=== PATIENT | male | born 1980 | race Caucasian/White ===

== ENCOUNTER 2017-02-08 14:51 | Emergency (ER) | payer MEDICAID, OTHER ==
--- NOTE | 2017-02-08 15:13 | NUR ---
CALLED PT FOR TRIAGE ASSESSMENT, NO ANSWER.
--- NOTE | 2017-02-08 15:31 | NUR ---
CALLED PT FOR TRIAGE ASSESSMENT, NO ANSWER X2.
--- NOTE | 2017-02-08 16:12 | NUR ---
PATIENT LEFT WITHOUT BEING SEEN BY DR. MORALES. NO FURTHER CARE PROVIDED FOR PATIENT.
== END 2017-02-08 16:12 | disposition left against medical advice (07) ==
LOC: MED 14:51
DX: M54.9 Dorsalgia, unspecified (principal); Z53.21 Procedure and treatment not carried out due to patient leaving prior to being seen by health care provider

== ENCOUNTER 2020-02-04 14:00 | Emergency (ER) | payer OTHER ==
[~2020-02-04] VITALS: Ht 185.4 cm; Wt 90.7 kg
[2020-02-04 14:01] VITALS: BP 133/93
--- NOTE | 2020-02-04 14:14 | NUR ---
39 Y/O MALE FROM HOME C/O RT FOOT PAIN RADIATING TO RT HIP X 2 WKS. PT STATES HE WAS SEEN AT [facility] 2 WKS AGO FOR SAME PAIN AND DIAGNOSED WITH NEUROPATHY. STATES 9/10 BURNING PAIN AT THIS TIME. HAS BEEN TAKING IBUPROFEN 800MG WITH NO RELIEF OF PAIN. ABLE TO AMBULATE, DENIES TRAUMA/INJURY. +CMS. NO DEFORMITIES NOTED, +PULSES BILATERALLY. MEDHX: DENIES ALLERGIES: NKA
--- NOTE | 2020-02-04 14:19 | NUR ---
DR ALCOCER AT BEDSIDE EXAMINING PT
[2020-02-04] MEDS ORDERED: KETOROLAC 30 MG/ML VIAL IM ONE (14:25)
--- NOTE | 2020-02-04 14:32 | NUR ---
LAB AT BEDSIDE
[2020-02-04 14:43] LABS: BASOPHILS # (AUTO) 0.1 K/uL (0.00-0.22); EOSINOPHILS % (AUTO) 0.7 % (0.0-4.0); HEMATOCRIT 44.8 % (36-52); HEMOGLOBIN 15.2 g/dL (12.0-18.0); LYMPHOCYTES # (AUTO) 1.7 K/uL (2.0-11.5); LYMPHOCYTES % (AUTO) 24.9 % (20.5-51.1); MEAN CORPUSCULAR HEMOGLOBIN 32 pg (27-31); MEAN CORPUSCULAR HGB CONC 34 g/dL (33-37); MEAN CORPUSCULAR VOLUME 93.9 fL (80-94); MONOCYTES # (AUTO) 0.4 K/uL (0.8-1.0); MONOCYTES % (AUTO) 6.4 % (1.7-9.3); NEUTROPHILS # (AUTO) 4.6 K/uL (1.8-7.7); PLATELET COUNT (AUTO) 211 K/uL (140-450); RED BLOOD CELL COUNT(AUTO) 4.77 MIL/uL (4.20-6.10); RED CELL DISTRIBUTION WIDTH 13.3 % (11.6-13.7); WHITE BLOOD COUNT (AUTO) 6.8 K/uL (4.8-10.8)
[2020-02-04 14:58] LABS: ANION GAP 11.7 (8-16); CARBON DIOXIDE 29.3 mmol/L (21-32); CREATININE 0.8 mg/dL (0.6-1.3)
--- NOTE | 2020-02-04 15:01 | NUR ---
RESTING IN BED AWAKE AND ALERT. X 1 SIDE RAIL RAISED, BED LOCKED AND IN LOW POSITION. STATES DECREASE IN PAIN/DISCOMFORT
--- NOTE | 2020-02-04 15:06 | NUR ---
DR ALCOCER RE-EVALUATING PT
[2020-02-04 15:13] VITALS: BP 127/88
--- NOTE | 2020-02-04 15:13 | NUR ---
Patient discharged with v/s stable. Written and verbal after care instructions given and explained. Patient alert, oriented and verbalized understanding of instructions. Ambulatory with steady gait. All questions addressed prior to discharge. ID band removed. Patient advised to follow up with PMD. Rx of NORCO 5MG-325MG TABLET given. Patient educated on indication of medication including possible reaction and side effects. Opportunity to ask questions provided and answered.
== END 2020-02-04 15:13 | disposition home or self-care (01) ==
LOC: MED 14:00
DX: M79.671 Pain in right foot (principal)
CPT/HCPCS: 36415; 80048; 85025; 96372; 99283; J1885

== ENCOUNTER 2022-04-08 14:12 | Emergency (ER) | payer OTHER ==
[~2022-04-08] VITALS: Ht 182.9 cm; Wt 79.1 kg
[2022-04-08] MEDS ORDERED: ONDANSETRON 4 MG/2 ML VIAL ONE (14:16)
[2022-04-08 14:20] VITALS: BP 117/80
[2022-04-08] MEDS: ONDANSETRON 4 MG/2 ML VIAL IVP ONE (14:20)
--- NOTE | 2022-04-08 14:26 | NUR ---
DR BARRAGAN AT BEDSIDE
[2022-04-08] MEDS ORDERED: ONDA8TAB87 PO (14:41)
[2022-04-08] MEDS: NACL 0.9% 1,000 ML IV ONE (14:50)
--- NOTE | 2022-04-08 15:23 | NUR ---
RESP EVEN AND UNLABORED. DC PATIENT AFTER BOLUS OF FLUID IS COMPLETE
--- NOTE | 2022-04-08 15:30 | NUR ---
41YR OLD MALE BIB EMS C/O OVERDOSE . A&OX4 PT CAME IN VOMITING. UNKNOWN SUBSTANCE WAS INGESTED PER PATIENT. STATES " I DONT KNOW WHAT I DID, ALL I KNOW IS THAT I WENT TO DO A LINE AND IT WAS WHITE" PT ON BEDSIDE MONITOR. NO DISTRESS NOTE. SP02 93% RA. 16G IV CATH IN L WRIST PER EMS. DENIES SOB OR CP. DENIES ANY PAIN. RESP EVEN AND UNLABORED. HOB ELEVATED SIDE RAILS UP X2. BED AT LOWEST POSITION NKDA NO MED HX
[2022-04-08 15:46] VITALS: BP 111/70
--- NOTE | 2022-04-08 15:47 | NUR ---
The patient's care was reviewed and supervised by Lupe Rivas RN.
== END 2022-04-08 15:46 | disposition home or self-care (01) ==
LOC: MED 14:12
DX: R11.2 Nausea with vomiting, unspecified (principal); T43.621A Poisoning by amphetamines, accidental (unintentional), initial encounter; F17.200 Nicotine dependence, unspecified, uncomplicated; F15.90 Other stimulant use, unspecified, uncomplicated; Y92.89 Other specified places as the place of occurrence of the external cause
CPT/HCPCS: 96361; 96374; 99283; J2405; J7030